=== PATIENT | female | born 1945 | race African-American/Black ===

== ENCOUNTER 2016-09-26 06:36 | Day surgery (SDC) | payer BC, OTHER ==
[2016-09-18 13:18] LABS: HEMATOCRIT 37.7 % (36.0-48.0); HEMOGLOBIN 13.2 g/dL (12.0-16.0)
[2016-09-18 13:41] LABS: BUN (BLOOD UREA NITROGEN) 18 MG/DL (6-23); CALCIUM, SERUM 8.8 MG/DL (8.5-10.4); CHLORIDE, SERUM 105 MMOL/L (96-112); CO2 (CARBON DIOXIDE) 27 MMOL/L (24-34); CREATININE 0.93 MG/DL (0.55-1.02); GFR AFRICAN AMERICAN 73 ML/MIN (>=60); GFR NON AFRICAN AMERICAN 63 ML/MIN (>=60); GLUCOSE, SERUM 91 MG/DL (60-99); POTASSIUM, SERUM 4.1 MMOL/L (3.5-5.3); SODIUM, SERUM 143 MMOL/L (135-148)
--- NOTE | ~2016-09-26 | OP ---
Record Of Operation [facility] [address] [place]. [address] NAME: SOFIYA LOWRY : 49 STATUS : [facility]#: [id number] AGE: 71 ADM/REG DATE : 09/26/16 MR#: [id number] REPORT SERV DATE: 09/26/16 DICTATED BY: HECTOR DE GUZMAN DATE: 09/26/16 REPORT STATUS : Draft TRANSCRIBED BY: MODL DATE: 09/26/16 DATE OF PROCEDURE: 09/26/2016 PREOPERATIVE DIAGNOSIS: Subcutaneous lipoma, distal left biceps area. POSTOPERATIVE DIAGNOSIS: Subcutaneous lipoma, distal left biceps area. PROCEDURE: Excision of subcutaneous lipoma, distal left biceps area. SURGEON: Hector De Guzman M.D. DESCRIPTION OF OPERATIVE PROCEDURE: The patient was brought to operating suite, placed in supine position, underwent satisfactory general endotracheal anesthesia. Following this, the skin of the left biceps was scrubbed, prepped, and draped in usual sterile fashion. Marcaine 0.5% with epinephrine was utilized as supplemental local anesthesia. A transverse skin incision was performed dissecting through the subcutaneous tissue. The lipoma was excised both bluntly and with cautery. The brachial vein was preserved, and hemostasis was assured, with an estimated blood loss of 5 mL. Subcutaneous tissue was then irrigated and closed in two layers with interrupted 3-0 Vicryl subcutaneously and running subcuticular stitch of 4-0 Vicryl for the skin. Dermabond and skin adhesive were placed. The patient tolerated the procedure well. She was returned to PACU in stable condition. At the termination of the procedure sponge, needle, lap, and instrument counts were correct x3. WR/MODL Hector De Guzman M.D. / [id number] CC: Mirella Abbott M.D.
[~2016-09-26 06:36] MED LIST: ASAB PO; B 12; CADUET5 MG/20 MG PO; D 3; EYE; HCTZ12.5 PO; LUMIGAN2.5 ML OPH; PRAV10 PO; SYN075 PO; SYSTANE ULTR; [UNRECOGNIZED DRUG - OTHER]
== END 2016-09-26 23:59 | disposition home or self-care (01) ==
LOC: MSC 06:36
PROVIDERS: Specialist
PROC: 0XB90ZZ Excision of Left Upper Arm, Open Approach (ICD-10-PCS; principal; 2016-09-26 07:45)
DX: E65 Localized adiposity (principal); H40.9 Unspecified glaucoma; E78.5 Hyperlipidemia, unspecified; I10 Essential (primary) hypertension; E03.9 Hypothyroidism, unspecified; M85.80 Other specified disorders of bone density and structure, unspecified site; D64.9 Anemia, unspecified; Z79.82 Long term (current) use of aspirin; Z79.899 Other long term (current) drug therapy; Z98.890 Other specified postprocedural states; Z90.710 Acquired absence of both cervix and uterus
CPT/HCPCS: 80048; 85014; 85018; 88304; 93005; A9270-GY; J0690; J2250; J2405; J3010